=== PATIENT | male | born 2000 | race Caucasian/White ===

== ENCOUNTER 2023-06-16 18:41 | Observation (INO) | payer OTHER ==
[~2023-06-16] VITALS: Ht 172.7 cm; Wt 88.0 kg
--- NOTE | ~2023-06-16 | EKG ---
[facility] [address] [facility] [place], [place] [address] Draft EKG completed, results pending confirmation PATIENT NAME: RONALDO CREWS AYAH Electrocardiogram DATE OF : 00 PHYSICIAN: PRELIMINARY REPORT #: [id number] REPORT IS CONFIDENTIAL AND NOT TO BE RELEASED WITHOUT AUTHORIZATION
--- NOTE | ~2023-06-16 | EKG ---
[facility] [address] [facility] [place], [place] [address] Draft EKG completed, results pending confirmation PATIENT NAME: RONALDO CREWS AYAH Electrocardiogram DATE OF : 00 PHYSICIAN: PRELIMINARY REPORT #: [id number] REPORT IS CONFIDENTIAL AND NOT TO BE RELEASED WITHOUT AUTHORIZATION
[2023-06-16 19:00] LABS: BASOPHILS 0.7 % (0-2); EOSINOPHILS 0.8 % (0-6); HEMATOCRIT 45.5 % (35.0-50.0); HEMOGLOBIN 15.5 g/dL (12.0-18.0); LYMPHOCYTES 34.2 % (24-44); MCH 30.9 (27-36); MCHC 34.1 g/dl (30-36); MCV 90.6 fl (81-99); MONOCYTES 9.6 % (0-12); NEUTROPHILS 54.7 % (39-80); PLATELET COUNT 252 K/uL (140-440); RBC 5.02 M/ul (4.3-5.7)
[2023-06-16] MEDS ORDERED: PROZAC40 MG PO (19:08)
[2023-06-16] MEDS ORDERED: ANTIFUNGAL113 GM TOP (19:09)
[2023-06-16 19:22] LABS: ALBUMIN 4.5 g/dL (3.4-5.0); ALBUMIN/GLOBULIN RATIO 1.29 (1.1-2.4); ALCOHOL, MEDICAL <3 ng/dL (<3); ALKALINE PHOSPHATASE 107 U/L (46-116); ALT (SGPT) 28 U/L (14-59); AST (SGOT) 12 U/L (15-37); BILIRUBIN, TOTAL 0.4 ng/dL (0.2-1.0); BUN/CREATININE RATIO 19.13 (6.0-28.6); CARBON DIOXIDE 29 mmol/L (21-32); CHLORIDE 103 mmol/L (98-107); CREATININE, SERUM 1.15 mg/dL (0.70-1.30); GLOMERULAR FILTRATION RATE,EST 92 mL/min (>60); SALICYLATE 1.5 mg/dL (2.8-20.0); TSH, 3RD GENERATION 3.482 uIU/mL (0.358-3.740); UREA NITROGEN 22 mg/dL (7-18)
[2023-06-16 19:23] LABS: BILIRUBIN, URINE NEGATIVE (negative); BLOOD/HGB, URINE NEGATIVE (Negative); KETONE, URINE NEGATIVE (Negative); LEUK ESTERASE, URINE NEGATIVE (negative); NITRITE, URINE NEGATIVE (negative); PH, URINE 5.5 (5-7)
[2023-06-16 19:23] LABS: ACETAMINOPHEN 36 ug/mL (10-30)
[2023-06-16 19:38] LABS: AMPHETAMINES, URINE NEGATIVE (NEGATIVE); BARBITURATES, URINE NEGATIVE (NEGATIVE); BENZODIAZEPINE, URINE NEGATIVE (NEGATIVE); BUPRENORPHINE, URINE NEGATIVE (NEGATIVE); CANNABINOID, URINE NEGATIVE (NEGATIVE); COCAINE, URINE NEGATIVE (NEGATIVE); ECSTASY, URINE NEGATIVE (NEGATIVE); FENTANYL, URINE NEGATIVE (NEGATIVE); METHADONE, URINE NEGATIVE (NEGATIVE); OPIATES, URINE NEGATIVE (NEGATIVE); OXYCODONE, URINE NEGATIVE (NEGATIVE); PHENCYCLIDINE, URINE NEGATIVE (NEGATIVE)
[2023-06-16 23:19] LABS: ANION GAP 16.6 (7-21); BUN/CREATININE RATIO 20.4 (6.0-28.6); CALCIUM 8.1 mg/dL (8.5-10.1); CREATININE, SERUM 0.98 mg/dL (0.70-1.30); POTASSIUM 3.6 mmol/L (3.5-5.1)
[2023-06-16 23:22] LABS: ACETAMINOPHEN 50 ug/mL (10-30)
--- NOTE | 2023-06-17 01:30 | NUR ---
PT ARRIVED VIA STRETCHER FROM E.D. WITH PILI CHAUDHARI AND TWO [facility] OFFICERS, PATIENT IN RESTRAINTS. ALERT AND ORIENTED, NO DISSTRESS NOTED ON VISUAL. PATIENT TRANSFERED SELF FROM STRETCHER TO HOSPITAL BED, TOELRATED ACTIVITY WELL.
--- NOTE | 2023-06-17 01:40 | NUR ---
REPORT FROM AKANKSHA CHAUDHARI E.D., POISON CONTROL SPOKE WITH HER AND SAID NO NEED FOR THE 24 HOUR INFUSION FOLLOWING 4 HOUR INFUSION OF ACETYLCYSTEINE, AFTER LABS, POISON CONTROL TO DIRECT CARE PLAN.
[2023-06-17 01:42] VITALS: BP 130/86
--- NOTE | 2023-06-17 02:35 | NUR ---
PATIENT ASSISTED TO THE BR A SBA. PATIENT ABLE TO VOID. PATIENT IS BACK IN BED RESTING. PATIENT DENIES ANY FURTHER NEEDS. X2 GUARDS REMAIN IN THE ROOM. CALL LIGHT IN REACH.
[2023-06-17 02:45] VITALS: BP 153/96
[2023-06-17 02:54] LABS: ACETAMINOPHEN 22 ug/mL (10-30)
--- NOTE | 2023-06-17 02:56 | NUR ---
COLUM[place]IA SUICIDE SCALE RATES PATIENT MODERATE RISK ON ADMISSION, PATIENT DOES NOT NEED TO BE 1:1, HE IS DIRECT OBSERVATION FROM NURSES STATION. EQUIPMENT NOT REMOVED FROM ROOM PATIENT IS NOT CLEARED MEDICALLY. TWO [facility] GUARDS IN ROOM ALSO IN DIRECT OBSERVATION OF PATIENT AT ALL TIMES. PATIENT IS IN RESTRAINTS X4 PER [facility] GUARDS.
[2023-06-17 03:14] VITALS: BP 139/98
--- NOTE | 2023-06-17 04:39 | NUR ---
POISON CONTROL MARLA CALLED FOR UPDATES ON PATIENT LABS AND SYMPTOMS. UPDATES GIVEN, MARLA SAID IF AM LIVER ENZYMELABS ARE BELOW 50, HE IS MEDICALLY CLEARED FOR DISCHARGE BY POISON CONTROL.
--- NOTE | 2023-06-17 05:10 | NUR ---
PATIENT ALERT AND ORIENTED, WATCHING TV, THIS RN INTO ROOM AT THIS TIME TO DRAW AM LABS FROM 18GA AC IV FOR LAB. PATIENT HAS DRANK 300ML WATER WITH NO NAUSEA TO REPORT AND HAS ASKED TO TRY SOME PUDDING. VANILLA PUDDING PROVIDED. ASSESSMENT COMPLETE, NO NEW CONCERNS AT THIS TIME. PATIENT REMAINS IN RESTRAINTS PER [facility] GUARDS WITH TWO [facility] GUARDS AT BEDSIDE.
[2023-06-17 05:17] VITALS: BP 150/85
[2023-06-17 05:42] LABS: ALBUMIN 3.4 g/dL (3.4-5.0); ALBUMIN/GLOBULIN RATIO 1.13 (1.1-2.4); ANION GAP 13.7 (7-21); BILIRUBIN, TOTAL 0.6 ng/dL (0.2-1.0); BUN/CREATININE RATIO 16.12 (6.0-28.6); CREATININE, SERUM 0.93 mg/dL (0.70-1.30); POTASSIUM 3.7 mmol/L (3.5-5.1); PROTEIN, TOTAL 6.4 g/dL (6.4-8.2)
[2023-06-17 05:45] LABS: ACETAMINOPHEN 11 ug/mL (10-30)
--- NOTE | 2023-06-17 06:25 | NUR ---
PATIENT ASSISTED TO THE BR A SBA. PATIENT ABLE TO VOID. PATIENT IS BACK IN BED RESTING. PATIENT DENIES ANY FURTHER NEEDS. CALL LIGHT IN REACH. X2 GUARDS REMAIN IN THE ROOM.
--- NOTE | 2023-06-17 06:35 | NUR ---
UPDATED ON PATIENT LABS AND STATUS, EATING AND DRINKING, WITH NO FURTHER NAUSEA, UPDATE ON LABS, AND POISON CONTROL PHONE CALL THIS AM AND WHAT THEY HAD TO SAY. SEE RN NOTES.
[2023-06-17 07:50] VITALS: BP 115/80
--- NOTE | 2023-06-17 09:35 | NUR ---
PATIENT IS A 23 YR. OLD [facility] INMATE WITH DX.DRUG OVERDOSE. PLAN IS PATIENT WILL RETURN TO [facility] WHEN STABLE. LUIS THE [facility] BED CONTROL CALLED AND UPDATED. PHONE NUMBER [phone].
--- NOTE | 2023-06-17 09:48 | NUR ---
in room with pt and rn, as well as [facility] mental health provider.
--- NOTE | 2023-06-17 09:51 | NUR ---
poison control called for update- labs reviewed, pt denies needs. cleared from poison control.
--- NOTE | 2023-06-17 10:53 | NUR ---
Contingents Supervisor called [facility] FOR BED CONTROL.SPOKE TO THE [facility] NURSE. PATIENT ORDERS FAXED TO [facility]. PATIENT WILL BE DC'D TO [facility] SOMETIME TODAY. [facility] OK WITH THE PLAN TO TRANSFER THE PATIENT BACK TO [facility].
--- NOTE | 2023-06-17 11:25 | NUR ---
rn spoke on phone with dr after dc equipment planner real returned pink dc slip to this rn, planning on dc out today - will anticipate orders and rn will call report to facility - no order at this time. pt denies needs and has call light in reach. [facility] staff x2.
--- NOTE | 2023-06-17 12:34 | NUR ---
REPORT CALLED TO [facility] RN - CANDIE EVANS SUMMARY AND [facility] PINK FORM SENT WITH STAFF TO BE GIVEN TO FACILITY.
[2023-06-17 12:42] VITALS: BP 132/86
== END 2023-06-17 12:45 | disposition home or self-care (01) ==
LOC: ED 18:41 → CCU 18:43
PROVIDERS: Emergency Medicine; Family Medicine; ADMIT Internal Medicine; ATTEND Internal Medicine
DX: T39.1X2A Poisoning by 4-Aminophenol derivatives, intentional self-harm, initial encounter (principal); T39.312A Poisoning by propionic acid derivatives, intentional self-harm, initial encounter; T43.222A Poisoning by selective serotonin reuptake inhibitors, intentional self-harm, initial encounter; Y92.9 Unspecified place or not applicable; F32.9 Major depressive disorder, single episode, unspecified
CPT/HCPCS: 36415; 80048; 80053; 80307; 81003; 84443; 85025; 93005; 93010; 96366; 96372; 96375; G0378; G0480; J0132; J1650; J2405; J7030; J7060

== ENCOUNTER 2023-06-22 18:07 | Emergency (ER) | payer OTHER ==
[~2023-06-22] VITALS: Ht 172.7 cm; Wt 88.1 kg
[~2023-06-22 18:07] MED LIST: ANTIFUNGAL113 GM TOP; PROZAC40 MG PO
--- OUTSIDE RECORDS SUMMARY | 2023-06-22 18:16 | XMS ---
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 Silva has no Care Guidelines for this patient. [place] [facility]12 MO.) [facility] NOTE: Visits indicate total known visits. [facility] [place] (12 MO.) [facility] COMPLAINT: - OD INTENTIONAL 06/16/2023 18:42 [facility] TYPE: Emergency COMPLAINT: - POSS OD INPATIENT VISIT TRACKING (12 MO.) 06/16/2023 18:43 [facility] TYPE: Observation COMPLAINT: - INTENTIONAL DRUG OVERDOSE DIAGNOSES: - Major depressive disorder, single episode, unspecified - Poisoning by 4-Aminophenol derivatives, intentional self-harm, initial encounter - Poisoning by propionic acid derivatives, intentional self-harm, initial encounter - Poisoning by selective serotonin reuptake inhibitors, intentional self-harm, initial encounter - Unspecified place or not applicable [email or web address]
[2023-06-22] MEDS ORDERED: PROZAC20 MG PO (18:17)
[2023-06-22] MEDS ORDERED: ZYPREXA5 MG PO (18:18)
[2023-06-22 18:27] LABS: HEMOGLOBIN 15.5 g/dL (12.0-18.0)
[2023-06-22 18:29] LABS: EOSINOPHILS 1.1 % (0-6); HEMATOCRIT 45.4 % (35.0-50.0); LYMPHOCYTES 37.1 % (24-44); MCH 30.9 (27-36); MCHC 34.1 g/dl (30-36); MCV 90.7 fl (81-99); MONOCYTES 8.6 % (0-12); NEUTROPHILS 52.2 % (39-80); PLATELET COUNT 235 K/uL (140-440); RBC 5.01 M/ul (4.3-5.7)
[2023-06-22 18:38] LABS: BILIRUBIN, URINE NEGATIVE (negative); BLOOD/HGB, URINE NEGATIVE (Negative); KETONE, URINE NEGATIVE (Negative); LEUK ESTERASE, URINE NEGATIVE (negative); NITRITE, URINE NEGATIVE (negative)
[2023-06-22 18:50] LABS: ALBUMIN 4.6 g/dL (3.4-5.0); ALBUMIN/GLOBULIN RATIO 1.39 (1.1-2.4); ALCOHOL, MEDICAL <3 ng/dL (<3); ALKALINE PHOSPHATASE 106 U/L (46-116); ALT (SGPT) 27 U/L (14-59); ANION GAP 18.1 (7-21); AST (SGOT) 13 U/L (15-37); BILIRUBIN, TOTAL 0.4 ng/dL (0.2-1.0); BUN/CREATININE RATIO 17.46 (6.0-28.6); CALCIUM 9.5 mg/dL (8.5-10.1); CARBON DIOXIDE 27 mmol/L (21-32); CHLORIDE 103 mmol/L (98-107); CREATININE, SERUM 1.26 mg/dL (0.70-1.30); GLOMERULAR FILTRATION RATE,EST 82 mL/min (>60); POTASSIUM 4.1 mmol/L (3.5-5.1); PROTEIN, TOTAL 7.9 g/dL (6.4-8.2); SALICYLATE 3.1 mg/dL (2.8-20.0); TSH, 3RD GENERATION 3.001 uIU/mL (0.358-3.740); UREA NITROGEN 22 mg/dL (7-18)
[2023-06-22 18:52] LABS: AMPHETAMINES, URINE NEGATIVE (NEGATIVE); BARBITURATES, URINE NEGATIVE (NEGATIVE); BENZODIAZEPINE, URINE NEGATIVE (NEGATIVE); BUPRENORPHINE, URINE NEGATIVE (NEGATIVE); CANNABINOID, URINE NEGATIVE (NEGATIVE); COCAINE, URINE NEGATIVE (NEGATIVE); ECSTASY, URINE NEGATIVE (NEGATIVE); FENTANYL, URINE NEGATIVE (NEGATIVE); METHADONE, URINE NEGATIVE (NEGATIVE); OPIATES, URINE NEGATIVE (NEGATIVE); OXYCODONE, URINE NEGATIVE (NEGATIVE); PHENCYCLIDINE, URINE NEGATIVE (NEGATIVE)
[2023-06-22 18:54] LABS: ACETAMINOPHEN 74 ug/mL (10-30)
[2023-06-22 22:41] LABS: ALBUMIN 3.9 g/dL (3.4-5.0); ALBUMIN/GLOBULIN RATIO 1.26 (1.1-2.4); ANION GAP 15.1 (7-21); BILIRUBIN, TOTAL 0.3 ng/dL (0.2-1.0); BUN/CREATININE RATIO 18.34 (6.0-28.6); CALCIUM 8.8 mg/dL (8.5-10.1); CREATININE, SERUM 1.09 mg/dL (0.70-1.30); POTASSIUM 4.1 mmol/L (3.5-5.1)
[2023-06-22 22:44] LABS: SALICYLATE 3.5 mg/dL (2.8-20.0)
[2023-06-22 22:45] LABS: ACETAMINOPHEN 43 ug/mL (10-30)
[2023-06-22 23:04] VITALS: BP 126/76
--- NOTE | 2023-06-23 20:31 | EKG ---
[facility] [address] [facility] [place] [address] Signed Normal sinus rhythm Possible Inferior infarct , age undetermined Abnormal ECG When compared with ECG of 17-JUN-2023 06:01, Borderline criteria for Inferior infarct are now present T wave inversion now evident in Inferior leads T wave amplitude has increased in Lateral leads Confirmed by Camilo Fields MD () on 06/23/2023 8:31:21 PM Electronically Signed By: CAMILO FIELDS MD 06/23/232030 PATIENT NAME: RONALDO CREWS Electrocardiogram DATE OF : 00 PHYSICIAN: CAMILO FIELDS MD REPORT #: [id number] REPORT IS CONFIDENTIAL AND NOT TO BE RELEASED WITHOUT AUTHORIZATION
== END 2023-06-22 23:07 | disposition home or self-care (01) ==
LOC: ED 18:07
PROVIDERS: Family Medicine; Internal Medicine
DX: T39.1X2A Poisoning by 4-Aminophenol derivatives, intentional self-harm, initial encounter (principal); T39.312A Poisoning by propionic acid derivatives, intentional self-harm, initial encounter; R42 Dizziness and giddiness; Z79.899 Other long term (current) drug therapy
CPT/HCPCS: 36415; 80048; 80053; 80307; 81003; 84443; 85025; 93005; 93010; 99285-25; G0480; J7030